=== PATIENT | female | born 1975 | race Caucasian/White ===

== ENCOUNTER 2020-02-01 19:19 | Emergency (ER) | payer BC, SELFPAY ==
[~2020-02-01] VITALS: Ht 162.6 cm; Wt 76.7 kg
[~2020-02-01 19:19] MED LIST: ADDERAL20 MG ORAL; CEPHALEXIN500 MG ORAL; FLOMAX0.4 MG ORAL; NORCO 5/3251 TAB ORAL
[2020-02-01 19:20] VITALS: BP 109/70
[2020-02-01 20:38] LABS: ANION GAP 9 mmol/L (5-15); BLOOD UREA NITROGEN 11 mg/dL (7-18); CARBON DIOXIDE 25 MMOL/L (21-32); CHLORIDE 106 MMOL/L (98-107); CREATININE 0.7 MG/DL (0.55-1.30); POTASSIUM 3.8 MMOL/L (3.5-5.1); SODIUM 140 MMOL/L (136-145)
[2020-02-01 20:39] LABS: APPEARANCE,URINE CLEAR; BILIRUBIN, URINE NEGATIVE (NEGATIVE); GLUCOSE, URINE (UA) NEGATIVE (NEGATIVE); KETONES,URINE 1+ (NEGATIVE); LEUKOCYTE ESTERASE ,URINE NEGATIVE (NEGATIVE); NITRITE,URINE NEGATIVE (NEGATIVE); PH,URINE 6 (4.5-8.0); PROTEIN,URINE NEGATIVE (NEGATIVE); UROBILINOGEN,URINE 1 MG/DL (0.0-1.0)
[2020-02-01 20:42] LABS: BASOPHILS % (AUTO) 0.8 % (0.0-2.0); COLOR,URINE YELLOW; EOSINOPHILS % (AUTO) 0.9 % (0.0-3.0); HEMATOCRIT 37.6 % (37.0-47.0); HEMOGLOBIN 13.2 G/DL (12.0-16.0); LYMPHOCYTES % (AUTO) 24.1 % (20.0-45.0); MEAN CORPUSCULAR VOLUME 87 FL (80-99); NEUTROPHILS % (AUTO) 66.2 % (45.0-75.0); PLATELET COUNT 257 K/UL (150-450); RED CELL DISTRIBUTION WIDTH 11.8 % (11.6-14.8)
--- NOTE | 2020-02-01 20:42 | Emergency Room Report ---
History of Present Illness General Chief Complaint: Female Urogenital Problems Source: Patient Present Illness HPI 44-year-old -0-1-0 approximately 6 weeks by ultrasound here with intermittent lower abdominal discomfort and urinary frequency. Patient says that she has been having these symptoms for the past 5 days. She went to an urgent care center where she had a urinalysis performed that was unremarkable. She was instructed by the nurse practitioner at the urgent care center to come to the emergency department for further evaluation. Patient said that she had a subchorionic hemorrhage during this at approximately 5 weeks and had a follow-up ultrasound 3 weeks ago that was normal which showed resolution of the subchorionic hemorrhage. Denies any fevers, chills, chest pain, palpitation, shortness of breath, back pain, nausea, vomiting, diarrhea, dysuria, hematuria, vaginal bleeding, vaginal discharge. Has had urinary tract infection and pyelonephritis in the remote past. Allergies: Coded Allergies: No Known Allergies (Unverified , 01/01/13) COVID-19 Screening Contact w/high risk pt: No Experienced COVID-19 symptoms?: No COVID-19 Testing performed RESEARCH AND DEVELOPMENT TECHNICIAN: No Patient History Last Menstrual Period: 10/2019 Now: Yes - 15.5 wks : 2 Para: 0 Nursing Documentation-[facility] Past Medical History: No History, Except For Hx Asthma: Yes Hx Gastrointestinal Problems: Yes - subchorionic hemorrage Review of Systems All Other Systems: negative except mentioned in HPI Physical Exam Vital Signs Date Time Temp Pulse Resp B/P (MAP) Pulse Ox O2 Delivery O2 Flow Rate FiO2 02/01/20 19:19 97.5 85 14 109/70 (83) 96 Room Air Sp02 EP Interpretation: reviewed, normal General Appearance: no apparent distress, alert, non-toxic Head: normocephalic, atraumatic Eyes: bilateral eye normal inspection, bilateral eye PERRL ENT: hearing grossly normal, normal pharynx, no angioedema, normal voice Neck: full range of motion, supple/symm/no masses Respiratory: chest non-tender, lungs clear, normal breath sounds, speaking full sentences Cardiovascular #1: regular rate, rhythm, no edema Cardiovascular #2: 2+ carotid (R), 2+ carotid (L), 2+ radial (R), 2+ radial (L), 2+ dorsalis pedis (R), 2+ dorsalis pedis (L) Gastrointestinal: normal bowel sounds, non tender, soft, non-distended, no guarding, no rebound, other - Gravid abdomen. No abdominal tenderness on palp ation. No rebound or guarding Rectal: deferred Genitourinary: normal inspection, no CVA tenderness Musculoskeletal: back normal, normal range of motion, gait/station normal, non- tender Neurologic: alert, motor strength/tone normal, oriented x3, sensory intact, responsive, speech normal Psychiatric: judgement/insight normal, memory normal, mood/affect normal, no suicidal/homicidal ideation Lymphatic: no adenopathy Medical Decision Making Diagnostic Impression: Primary Impression: Abdominal pain affecting ER Course Transvaginal ultrasound: IMPRESSION: 1. Single viable intrauterine gestation. 2. Ultrasound age 15 weeks 5 days. 3. No acute abnormality definitively identified to account for patient presentation. Laboratory Tests Test 02/01/20 19:45 White Blood Count 13.0 K/UL (4.8-10.8) H Red Blood Count 4.30 M/UL (4.20-5.40) Hemoglobin 13.2 G/DL (12.0-16.0) Hematocrit 37.6 % (37.0-47.0) Mean Corpuscular Volume 87 FL (80-99) Mean Corpuscular Hemoglobin 30.8 PG (27.0-31.0) Mean Corpuscular Hemoglobin Concent 35.2 G/DL (32.0-36.0) Red Cell Distribution Width 11.8 % (11.6-14.8) Platelet Count 257 K/UL (150-450) Mean Platelet Volume 6.8 FL (6.5-10.1) Neutrophils (%) (Auto) 66.2 % (45.0-75.0) Lymphocytes (%) (Auto) 24.1 % (20.0-45.0) Monocytes (%) (Auto) 8.0 % (1.0-10.0) Eosinophils (%) (Auto) 0.9 % (0.0-3.0) Basophils (%) (Auto) 0.8 % (0.0-2.0) Urine Color Yellow Urine Appearance Clear Urine pH 6 (4.5-8.0) Urine Specific [place] 1.025 (1.005-1.035) Urine Protein Negative (NEGATIVE) Urine Glucose (UA) Negative (NEGATIVE) Urine Ketones 1+ (NEGATIVE) H Urine Blood Negative (NEGATIVE) Urine Nitrite Negative (NEGATIVE) Urine Bilirubin Negative (NEGATIVE) Urine Urobilinogen 1 MG/DL (0.0-1.0) H Urine Leukocyte Esterase Negative (NEGATIVE) Urine HCG, Qualitative Positive (NEGATIVE) Sodium Level 140 MMOL/L (136-145) Potassium Level 3.8 MMOL/L (3.5-5.1) Chloride Level 106 MMOL/L (98-107) Carbon Dioxide Level 25 MMOL/L (21-32) Anion Gap 9 mmol/L (5-15) Blood Urea Nitrogen 11 mg/dL (7-18) Creatinine 0.7 MG/DL (0.55-1.30) Estimated Glomerular Filtration Rate > 60 mL/min (>60) Glucose Level 89 MG/DL (74-106) Calcium Level 9.0 MG/DL (8.5-10.1) Total Bilirubin 0.1 MG/DL (0.2-1.0) L Aspartate Amino Transferase (AST) 18 U/L (15-37) Alanine Aminotransferase (ALT) 17 U/L (12-78) Alkaline Phosphatase 58 U/L (46-116) Total Protein 7.2 G/DL (6.4-8.2) Albumin 3.3 G/DL (3.4-5.0) L Globulin 3.9 g/dL Albumin/Globulin Ratio 0.8 (1.0-2.7) L Lipase 113 U/L (73-393) Human Chorionic Gonadotropin, Quant 33085 mIU/mL (1-6) H 44-year-old female -0-1-0 approximately 16 weeks by ultrasound, here with abdominal pressure. Patient was hemodynamically stable and neurovascular intact in the emergency department. She had an unremarkable physical examination without any abdominal tenderness or rebound or guarding. Urinalysis negative for any signs of infection or asymptomatic bacteriuria. Labs unremarkable as well and patient had a normal hCG level within normal range for gestational age. She had a transvaginal ultrasound which showed a normal viable fetus 15 weeks and 5 days gestational age with a normal heart rate. 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 Given return precautions to come back to the emergency department she has any worsening abdominal pain or vaginal bleeding. She expressed understanding and was discharged. Last Vital Signs Date Time Temp Pulse Resp B/P (MAP) Pulse Ox O2 Delivery O2 Flow Rate FiO2 02/01/20 19:19 97.5 85 14 109/70 (83) 96 Room Air Referrals: NON PHYSICIAN (PCP) Pete Cox M.D. Feb 01, 2020 20:42
[2020-02-01 20:43] LABS: ALANINE AMINOTRANSFERASE 17 U/L (12-78); ALBUMIN 3.3 G/DL (3.4-5.0); ALBUMIN/GLOBULIN RATIO 0.8 (1.0-2.7); ALKALINE PHOSPHATASE 58 U/L (46-116); ASPARTATE AMINO TRANSFERASE 18 U/L (15-37); BILIRUBIN,TOTAL 0.1 MG/DL (0.2-1.0)
--- NOTE | 2020-02-01 21:01 | Diagnostic Imaging Report ---
EXAM: US Second or Third Trimester , Transabdominal CLINICAL HISTORY: ABD PAIN TECHNIQUE: Real-time transabdominal obstetrical ultrasound of the maternal pelvis and a second or third trimester with image documentation. COMPARISON: No relevant prior studies available. FINDINGS: Fetus: Single viable intrauterine gestation. Heart rate: heart rate 179 bpm. Presentation: variable Placenta: Unremarkable. No abruption. Amniotic fluid: Unremarkable. Anatomy: Intracranial/face anatomy not seen. Spinal anatomy not seen. Abdominal anatomy not seen. Extremities not seen. Four-chamber heart not seen. Umbilical cord not seen. BIOMETRICS Gestational age: Gestational age U/S: 15 weeks 5 days Gestational age LMP: 14 weeks 6 days RUTH: RUTH U/S: 07/20/2020 RUTH LMP: 07/26/2020 EFW: 139 g, 15 weeks 5 days, 97 %ile BPD: 3 cm, 15 weeks 3 days, 70 %ile HC: 11.4cm, 15 weeks 4 days, 71 %ile AC: 10.5cm, 16 weeks 4 days, 94 %ile FL: 1.8 cm, 15 weeks 3 days, 70 %ile MATERNAL: Uterus: Unremarkable. No myometrial mass. Cervix: Cervix long and closed. Free fluid: No free fluid. Other findings: Ultrasound age 15 weeks 5 days. IMPRESSION: 1. Single viable intrauterine gestation. 2. Ultrasound age 15 weeks 5 days. 3. No acute abnormality definitively identified to account for patient presentation.
[2020-02-01 21:15] VITALS: BP 109/70
--- NOTE | 2020-02-01 21:40 | Diagnostic Imaging Report ---
EXAM: US Pelvis Transabdominal, Complete CLINICAL HISTORY: ABD PAIN TECHNIQUE: Real-time complete transabdominal pelvic ultrasound with image documentation. COMPARISON: No relevant prior studies available. FINDINGS: Fetus: Single viable intrauterine gestation. Heart rate: heart rate 179 bpm. Presentation: variable Placenta: Unremarkable. No abruption. Amniotic fluid: Unremarkable. Anatomy: Intracranial/face anatomy not seen. Spinal anatomy not seen. Abdominal anatomy not seen. Extremities not seen. Four-chamber heart not seen. Umbilical cord not seen. BIOMETRICS Gestational age: Gestational age U/S: 15 weeks 5 days Gestational age LMP: 14 weeks 6 days RUTH: RUTH U/S: 07/20/2020 RUTH LMP: 07/26/2020 EFW: 139 g, 15 weeks 5 days, 97 %ile BPD: 3 cm, 15 weeks 3 days, 70 %ile HC: 11.4cm, 15 weeks 4 days, 71 %ile AC: 10.5cm, 16 weeks 4 days, 94 %ile FL: 1.8 cm, 15 weeks 3 days, 70 %ile MATERNAL: Uterus: Unremarkable. No myometrial mass. Cervix: Cervix long and closed. Free fluid: No free fluid. Other findings: Ultrasound age 15 weeks 5 days. IMPRESSION: 1. Single viable intrauterine gestation. 2. Ultrasound age 15 weeks 5 days. 3. No acute abnormality definitively identified to account for patient presentation.
== END 2020-02-01 21:15 | disposition home or self-care (01) ==
LOC: EMR 19:46
DX: O26.892 Other specified pregnancy related conditions, second trimester (principal); R10.9 Unspecified abdominal pain; Z3A.15 15 weeks gestation of pregnancy; R10.30 Lower abdominal pain, unspecified
CPT/HCPCS: 36415; 76801; 76805; 76817; 76856; 80053; 81003; 81025; 83690; 84702; 85025; 99284